=== PATIENT | male | born 1975 | race Two or more races ===

== ENCOUNTER 2021-09-10 05:59 | Emergency (ER) | payer SELFPAY ==
[2021-09-10] MEDS ORDERED: Acetaminophen 500 MG TAB ONE (06:33)
[2021-09-10] MEDS ORDERED: Ondansetron ODT 4 MG TAB ONE (06:33)
[2021-09-10 16:27] LABS: SARS-CoV-2 PCR by NAA Not Detected (NotDetected)
== END 2021-09-10 08:15 | disposition home or self-care (01) ==
LOC: CSHERS 05:59
DX: J39.9 Disease of upper respiratory tract, unspecified (principal); R04.2 Hemoptysis; Z20.822 Contact with and (suspected) exposure to COVID-19; F17.210 Nicotine dependence, cigarettes, uncomplicated
CPT/HCPCS: 71045; 93005; Q0162; U0003; U0005